=== PATIENT | male | born 1955 | race Caucasian/White ===

== ENCOUNTER 2017-02-11 07:36 | Emergency (ER) | payer SELFPAY ==
[~2017-02-11] VITALS: Ht 160 cm; Wt 95.2 kg
[2017-02-11 09:45] VITALS: BP 123/74
== END 2017-02-11 09:45 | disposition home or self-care (01) ==
LOC: ED 07:36
DX: R51 Headache (principal); H53.8 Other visual disturbances

== ENCOUNTER 2017-06-12 01:46 | Emergency (ER) | payer OTHER ==
[~2017-06-12] VITALS: Ht 160 cm; Wt 97.1 kg
[2017-06-12 01:51] VITALS: Ht 160 cm; Wt 97.1 kg
[2017-06-12 04:43] VITALS: BP 133/88
== END 2017-06-12 06:08 | disposition home or self-care (01) ==
LOC: ED 01:46
DX: R21 Rash and other nonspecific skin eruption (principal)

== ENCOUNTER 2017-06-25 06:41 | Emergency (ER) | payer OTHER ==
[2017-06-25 06:50] VITALS: BP 140/92
== END 2017-06-25 07:33 | disposition home or self-care (01) ==
LOC: ED 06:41
DX: R21 Rash and other nonspecific skin eruption (principal); I10 Essential (primary) hypertension

== ENCOUNTER 2017-07-16 16:28 | Emergency (ER) | payer OTHER ==
[~2017-07-16] VITALS: Ht 160 cm; Wt 95.8 kg
[2017-07-16 16:47] VITALS: Ht 160 cm; Wt 95.8 kg
[2017-07-16 17:22] VITALS: BP 110/62
== END 2017-07-16 17:22 | disposition home or self-care (01) ==
LOC: ED 16:28
DX: R21 Rash and other nonspecific skin eruption (principal); I10 Essential (primary) hypertension

== ENCOUNTER 2017-12-09 11:12 | Emergency (ER) | payer OTHER ==
[2017-12-09 13:54] VITALS: BP 113/77
== END 2017-12-09 13:54 | disposition home or self-care (01) ==
LOC: ED 11:12
DX: N39.0 Urinary tract infection, site not specified (principal); I10 Essential (primary) hypertension
CPT/HCPCS: J0696; J1885

== ENCOUNTER 2019-03-27 12:36 | Emergency (ER) | payer OTHER ==
[~2019-03-27] VITALS: Ht 160 cm; Wt 91.2 kg
[2019-03-27 12:46] VITALS: Ht 160 cm; Wt 91.2 kg
[2019-03-27 14:03] VITALS: BP 145/87
== END 2019-03-27 14:03 | disposition home or self-care (01) ==
LOC: ED 12:36
DX: S01.81XA Laceration without foreign body of other part of head, initial encounter (principal); I10 Essential (primary) hypertension; E11.9 Type 2 diabetes mellitus without complications; W22.8XXA Striking against or struck by other objects, initial encounter; Y93.89 Activity, other specified; Y92.89 Other specified places as the place of occurrence of the external cause; Y99.8 Other external cause status
CPT/HCPCS: 90715